=== PATIENT | female | born 1990 | race Asian ===

== ENCOUNTER 2017-01-25 17:14 | Day surgery (SDC) | payer BC ==
[2017-01-25] VITALS (10 sets, daily range): BP systolic 95–128; BP diastolic 56–72; PULSE 70–84; RESP 12–18; Ht 160 cm; Wt 46.3 kg
[~2017-01-25] VITALS: Ht 160 cm; Wt 46.3 kg
--- NOTE | 2017-01-25 17:09 | PREOPHP ---
DATE OF ADMISSION: 01/25/2017 HISTORY OF PRESENT ILLNESS: Patient is a 26-year-old, 1, last menstrual period 11/11/2016 w ith an intrauterine that was a missed . Patient was seen on 01/21/2017 when by he r dates she was 10 weeks 1 day. On ultrasound, it was 8 weeks in size, no cardiac motion noted. Of note, the patient did come back to my office today. She wanted it rechecked before D and C and the baby had essentially not grown obviously and the patient was again shown no cardiac motion. The pa tient is having some spotting. PAST MEDICAL HISTORY: Negative. PAST SURGICAL HISTORY: None. ALLERGIES: NO KNOWN DRUG ALLERGIES. FAMILY HISTORY: Noncontributory. PHYSICAL EXAMINATION: HEART: Regular rate and rhythm. LUNGS: Clear to auscultation. ABDOMEN: Soft, nontender, flat. PELVIC: Uterus 8 weeks size. Adnexa nontender, no masses. LABORATORY WORK: Type and Rh was done at the office but was not picked up so we did not ba ve it. It will be done in the hospital today. ASSESSMENT: Missed . PLAN: Dilatation and sharp curettage. Type and Rh to be checked at the hospital. Dictated By: ARLENE MAE/SILVINO Conf#: [id number] DID#: [id number]
[~2017-01-25 17:14] MED LIST: LACTATED RINGER'S 1,000 ML IV SCH; PROPOFOL 200 MG INJ ONE
[2017-01-25 17:57] LABS: ADD SCAN DIFF NO
[2017-01-25 18:01] LABS: BASOPHIL # 0.1 10^3/ul (0.0-0.1); BASOPHILS % 0.6 % (0.0-2.0); EOSINOPHILS # 0.7 10^3/ul (0.0-0.5); EOSINOPHILS % 6.7 % (0.0-7.0); HEMATOCRIT 33.5 % (37.0-47.0); HEMOGLOBIN 10.3 g/dl (12.0-16.0); LYMPHOCYTES % 38.2 % (15.0-51.0); MEAN CORPUSCULAR HGB CONC 30.7 g/dl (32.0-37.0); MEAN PLATELET VOLUME 10.5 fl (7.4-10.4); MONOCYTE # 0.7 10^3/ul (0.3-0.9); MONOCYTES % 6.6 % (0.0-11.0); NEUTROPHILS % 47.6 % (39.0-77.0); PLATELET COUNT 241 10^3/UL (140-415); RED BLOOD COUNT 5.15 10^6/ul (4.20-5.40); RED CELL DISTRIBUTION WIDTH 15.2 % (11.5-14.5); WHITE BLOOD COUNT 10.5 10^3/ul (4.8-10.8)
[2017-01-25] MEDS ORDERED: FENTAnyl 50 MCG/ML VIAL ONE (19:02)
[2017-01-25] MEDS ORDERED: MIDAZOLAM 1 MG/ML 2 ML INJ ONE (19:02)
[2017-01-25] MEDS ORDERED: ONDANSETRON 4 MG INJ ONE (19:02)
[2017-01-25] MEDS ORDERED: DEXAMETHASONE 4 MG/ML 1 ML INJ ONE (19:03)
[2017-01-25] MEDS ORDERED: DIPHENHYDRAMINE 50 MG INJ IV PRN (20:00)
[2017-01-25] MEDS ORDERED: KETOROLAC 30 MG INJ IV ONE (20:00)
[2017-01-25] MEDS ORDERED: HYDROmorphONE (0.2 MG/ML) 10ML SYG IV PRN ×3 (20:00)
[2017-01-25] MEDS ORDERED: MEPERIDINE 25 MG INJ IV PRN (20:00)
[2017-01-25] MEDS ORDERED: ONDANSETRON 4 MG INJ IV PRN (20:00)
--- NOTE | 2017-01-25 20:52 | PD.PPDC ---
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
--- NOTE | 2017-01-25 21:23 | OPR ---
DATE OF OPERATION: 01/25/2017 PREOPERATIVE DIAGNOSIS: Missed . POSTOPERATIVE DIAGNOSIS: Missed . OPERATION PERFORMED: Dilatation with suction and sharp curettage. SURGEON: Joao Chatman MD ANESTHESIOLOGIST: Dr. Zamarripa. ANESTHESIA: General. ESTIMATED BLOOD LOSS: 20 mL. PATHOLOGY: Uterine curettings sent to pathology for evaluation. PROCEDURE IN DETAIL: The patient was brought to the operating room, placed on the operating table a nd was placed under general anesthesia. Her legs were then brought up into Burak stirrups, and she was prepped and draped in the usual sterile fashion. Her bladder was emptied. A weighted speculum was then placed in the vaginal vault. The cervix was grasped with a tenaculum. Cervix was dilated using Hegar dilators. The uterus was then sounded to 12 cm. A 7 mm curved rigid suction curette wa s attached to the equipment and the uterine contents were evacuated over several passes where no mor e tissue was being retrieved. A sharp curette was used to scrape the fundus as well as all the late ral sidewalls until it appeared to be clean and clear. Suction curette was used again 1 more time a nd then the procedure was terminated. The tenaculum was removed. There was no bleeding noted from the site of the tenaculum placement, no bleeding from the uterus. The vault was cleaned. Weighted speculum was removed. Perineum was cleaned. Her legs were brought back down into full supine posit ion. She was awakened from general anesthesia and transferred to the recovery room in excellent con dition having tolerated the procedure well. Of note, her blood type is O positive. Dictated By: JOAO MAE/NTS Conf#: [id number] DID#: [id number]
== END 2017-01-25 21:08 | disposition home or self-care (01) ==
LOC: SDS 17:14
PROVIDERS: ATTEND Obstetrics & Gynecology
DX: O02.1 Missed abortion (principal)
CPT/HCPCS: 59820; 85025; 86900; 86901; J1100; J1885; J2175; J2250; J2405; J3010